=== PATIENT | female | born 1970 | race Caucasian/White ===

== ENCOUNTER 2016-12-24 10:44 | Emergency (ER) | payer MEDICAID ==
[~2016-12-24] VITALS: Ht 180.3 cm; Wt 65.4 kg
[2016-12-24 10:47] VITALS: BP 130/80
[2016-12-24] MEDS ORDERED: LIDOCAINE 1%, 20ML ONE (11:19)
[2016-12-24] MEDS ORDERED: DIPH,PERTUSS(ACELL),TET VAC/PF 0.5 ML IM-VACC ONE ×2 (11:19→11:30)
[2016-12-24] MEDS ORDERED: LIDOCAINE 1%, 20ML INFIL ONE (11:30)
[2016-12-24] MEDS ORDERED: CEPHALEXIN 500 MG CAPSULE ONE (12:57)
[2016-12-24] MEDS ORDERED: CEPHALEXIN 500 MG CAPSULE PO ONE (13:00)
[2016-12-25] MEDS ORDERED: DULO60CA7 PO (20:09)
[2016-12-25] MEDS ORDERED: DULO30CA2 PO (20:09)
[2016-12-25] MEDS ORDERED: BUPR1FIL3 TD (20:09)
[2016-12-25] MEDS ORDERED: CYCL5TAB PO (20:09)
== END 2016-12-24 13:20 | disposition home or self-care (01) ==
LOC: ED 13:14
DX: S62.514B Nondisplaced fracture of proximal phalanx of right thumb, initial encounter for open fracture (principal); W23.0XXA Caught, crushed, jammed, or pinched between moving objects, initial encounter; Y93.89 Activity, other specified; Y92.89 Other specified places as the place of occurrence of the external cause; Y99.8 Other external cause status
CPT/HCPCS: 29125; 90471; 90715

== ENCOUNTER 2016-12-25 18:50 | Emergency (ER) | payer MEDICAID ==
[~2016-12-25] VITALS: Ht 180.3 cm; Wt 65.4 kg
[2016-12-25] MEDS ORDERED: SODIUM CHLORIDE FLUSH 10ML SYR IVF ONE (19:30)
[2016-12-25] MEDS ORDERED: SODIUM CHLORIDE 0.9% 1,000ML IVBOLUS ONE (19:30)
[2016-12-25 19:47] LABS: BLOOD UREA NITROGEN 6 mg/dL (7-18)
[2016-12-25] MEDS ORDERED: DULO30CA2 PO (20:09)
[2016-12-25] MEDS ORDERED: CYCL5TAB PO (20:09)
[2016-12-25] MEDS ORDERED: DULO60CA7 PO (20:09)
[2016-12-25] MEDS ORDERED: BUPR1FIL3 TD (20:09)
[2016-12-25 20:25] VITALS: BP 124/71
== END 2016-12-25 20:50 | disposition home or self-care (01) ==
LOC: ED 20:32
DX: N92.0 Excessive and frequent menstruation with regular cycle (principal); N92.1 Excessive and frequent menstruation with irregular cycle; N93.8 Other specified abnormal uterine and vaginal bleeding; F17.200 Nicotine dependence, unspecified, uncomplicated
CPT/HCPCS: 36415; 76830; 80048; 82040; 84703; 85025; 99285

== ENCOUNTER 2018-04-03 12:32 | Emergency (ER) | payer MEDICAID, OTHER ==
[~2018-04-03] VITALS: Ht 160 cm; Wt 70.0 kg
[~2018-04-03 12:32] MED LIST: BUPR1FIL3 TD; CYCL5TAB PO; DULO30CA2 PO; DULO60CA7 PO
[2018-04-03 13:00] VITALS: BP 107/67
[2018-04-03] MEDS ORDERED: KETOROLAC 30 MG/1 ML IM ONE (13:30)
== END 2018-04-03 13:50 | disposition home or self-care (01) ==
LOC: ED 13:44
DX: G89.29 Other chronic pain (principal); M54.9 Dorsalgia, unspecified; Z76.0 Encounter for issue of repeat prescription; F17.210 Nicotine dependence, cigarettes, uncomplicated
CPT/HCPCS: 99281